=== PATIENT | female | born 1975 | race Two or more races ===

== ENCOUNTER 2025-01-11 18:28 | Emergency (ER) | payer MEDICAID, SELFPAY ==
[2025-01-11 18:48] VITALS: BP 155/89; PULSE 77; RESP 18; TEMP 36.8; O2SAT 99
--- NOTE | 2025-01-11 18:48 | XR_ITS ---
Examination: Shoulder,right, 3 views Technique: Shoulder AP internal rotation, AP external rotation, Y view shoulder, 3 views Exam date and time :January 11, 2025 1912 hours INDICATIONS: Patient fell today with injury of the shoulder, shoulder pain. FINDINGS: No shoulder fracture or dislocation AC joint separation IMPRESSION: No shoulder fracture or dislocation
[2025-01-11] MEDS: KETOROLAC INJ 30 MG/ML VIAL IM (19:23)
--- NOTE | 2025-01-11 19:26 | PD.EDFALL ---
ED Fall Injury RME/HPI General Chief Complaint: Fall Stated Complaint: FELL AND HURT R) SHOULDER @ 10:30, CAN'T MOVE IT Time Seen by Provider: 01/11/25 18:34 Arrival date/time: 01/11/25 18:28 49-year-old female presents emergency department stating she had a ground-level fall earlier this morning patient reports that she cannot move her right shoulder secondary to pain Limitations: no limitations Related Data Home Medications ?Medication ?Instructions ?Recorded ?Confirmed metformin 1,000 mg tablet 1,000 mg PO BID 06/23/20 06/23/20 Previous Rx's ?Medication ?Instructions ?Recorded prednisone 50 mg tablet 50 mg PO QDAY #5 tabs 06/23/20 acetaminophen 300 mg-codeine 30 mg 1 tab PO Q8H PRN pain #20 tabs 11/20/23 tablet metoclopramide HCl 10 mg tablet 10 mg PO Q6H PRN nausea and 11/20/23 (Reglan) vomiting #20 tabs pantoprazole 40 mg tablet,delayed 40 mg PO QDAY #14 tabs 11/20/23 release (Protonix) cyclobenzaprine 10 mg tablet 10 mg PO TID PRN muscle spasm 10 01/11/25 days #30 tab-caps ibuprofen 800 mg tablet 800 mg PO TID PRN pain #30 tabs 01/11/25 Allergies Allergy/AdvReac Type Severity Reaction Status Date / Time Penicillins Allergy Unknown Verified 01/11/25 18:31 blueberries Allergy Intermediate swelling Uncoded 01/11/25 18:31 Review of Systems Review of Systems Systems Reviewed: All systems reviewed, normal except as documented Constitutional Constitutional: Reports system reviewed and no additional complaints, except as documented, Denies fever(s) and Denies headache(s) Eyes Eyes: Reports system reviewed and no additional complaints, except as documented and Denies blurry vision ENT Ears, Nose, Mouth, and Throat: Reports system reviewed and no additional complaints, except as documented, Denies headache(s), Denies nasal congestion and Denies nasal discharge Cardiovascular Cardiovascular: Reports system reviewed and no additional complaints, except as documented, Denies chest pain and Denies dyspnea Respiratory Respiratory: Reports system reviewed and no additional complaints, except as documented, Denies chest congestion, Denies cough and Denies dyspnea Gastrointestinal Gastrointestinal: Reports system reviewed and no additional complaints, except as documented and Denies abdominal pain Musculoskeletal Musculoskeletal: Reports system reviewed and no additional complaints, except as documented, Reports arthralgias, Denies deformity and Denies joint swelling Integumentary/Breasts Skin/Breast: Reports system reviewed and no additional complaints, except as documented and Denies rash Neurologic Neurologic: Reports system reviewed and no additional complaints, except as documented, Reports as per HPI and Denies headache(s) Past Medical History Social History SMOKING STATUS: Never smoker ED Exam General Limitations: Present no limitations General appearance: Present alert and in no apparent distress Head Head exam: Present atraumatic, normocephalic and normal inspection Eye Eye exam: Present normal appearance, PERRL and EOMI; Absent conjunctival injection ENT ENT exam: Present normal exam, normal oropharynx and mucous membranes moist Neck Neck exam: Present normal inspection, full ROM and trachea midline Chest Chest inspection: Present normal inspection and symmetric chest wall rise Respiratory Respiratory exam: Present normal lung sounds bilaterally Cardiovascular Cardiovascular exam: Present regular rate, normal rhythm and normal heart sounds Abdominal Exam Abdominal exam: Present soft and normal bowel sounds Extremities Exam Extremities exam: Present tenderness and normal capillary refill; Absent joint swelling Back Exam Back exam: Present normal inspection and full ROM Neurological Exam Neurological exam: Present alert, oriented X3 and CN II-XII intact Psychiatric Psychiatric exam: Present normal affect and normal mood Skin Skin exam: Present warm, dry, intact and normal color Course Quality Measures none Orders Category Date Time Status sling [Splint / Immobilizer] STAT Care 01/11/25 19:29 Active XR shoulder RT min 2V Stat Exams 01/11/25 18:48 Completed Ketorolac Inj [Toradol Inj] Med 01/11/25 18:48 Discontinued 30 mg IM X1 ONE Vital Signs Vital signs: Vital Signs Temperature 98.3 F 01/11/25 18:48 Pulse Rate 77 01/11/25 18:48 Respiratory Rate 18 01/11/25 18:48 Blood Pressure 155/89 H 01/11/25 18:48 Pulse Oximetry (%) 99 01/11/25 18:48 Oxygen Delivery Method Room Air 01/11/25 18:48 O2 saturation 99% room air within normal limits Fall MDM Narrative MDM Narrative:: 49-year-old female presents emergency department stating she had a ground-level fall earlier this morning patient reports that she cannot move her right shoulder secondary to pain X-ray of the right shoulder obtained no acute fracture dislocation noted Based on symptomatology and the fact the patient has decreased range of motion without fracture I suspect she may have injured her rotator cuff I explained to the patient that she needs to have MRI on an outpatient basis for further evaluation patient states understanding Patient placed in sling given a note for work Patient discharged home in no distress to follow-up with primary care doctor in the next 24 to 48 hours and for any worsening symptoms to return to the ER immediately Patient data External records reviewed:: [facility] previous records Clinical information provided by:: patient Social determinants that could affect healthcare access:: none Patient has the following chronic illnesses:: See history How is presenting disease/condition affected by chronic disease/condition?: uneffected by Evaluation data The following diagnostics were reviewed and interpreted by me:: radiology exam(s) Lab and/or radiology exams considered but not ordered:: Radiology obtain Interpretation Summary: Reviewed by me Medications / Prescriptions Medications or Prescriptions considered but not ordered:: Given Medication administrations:: Medication Administration History Discontinued Medications Ketorolac Tromethamine (Ketorolac Inj 30 Mg/Ml Vial) 30 mg IM X1 ONE Stop: 01/11/25 18:49 Last Admin: 01/11/25 19:23 Dose: 30 mg Documented By: KF Given Consultations Consultation(s) initiated? (list below): No Diagnosis Fall Differential Diagnosis: other (Shoulder fracture, shoulder sprain, AC separation) Most likely diagnosis given after review of the tests above:: Shoulder pain Admission Indicated Admission indicated?: not indicated Admission Request Was there a request for admission?: No Disposition Plan Disposition Plan: Discharge Discharge Attestation Discharge Attestation: The patient and all family members were given an opportunity to ask questions and understood the discharge instructions. Discharge instructions specifically effects, indications for sooner follow up or return to the emergency department, and the expected course of current diagnosis. Patient condition: Stable Discharge Plan Plan Patient Disposition: HOME (Self Care) Discharge Disposition comment: Stable Prescriptions/Referrals Prescriptions/Med Rec: New cyclobenzaprine 10 mg tablet 10 mg PO TID PRN (Reason: muscle spasm) 10 Days Qty: 30 0RF ibuprofen 800 mg tablet 800 mg PO TID PRN (Reason: pain) Qty: 30 0RF No Action metformin 1,000 mg Tablet 1,000 mg PO BID prednisone 50 mg tablet 50 mg PO QDAY Qty: 5 0RF acetaminophen-codeine 300-30 mg tablet 1 tab PO Q8H PRN (Reason: pain) Qty: 20 0RF metoclopramide HCl [Reglan] 10 mg tablet 10 mg PO Q6H PRN (Reason: nausea and vomiting) Qty: 20 0RF pantoprazole [Protonix] 40 mg tablet,delayed release (DR/EC) 40 mg PO QDAY Qty: 14 0RF Referrals: Sabas Bullard MD [Primary Care Provider] - In 1 week Problem List Clinical Impression: Acute pain of right shoulder, Fall Patient/Caregiver Discharge Instructions Education Materials: ED Arthralgia Additional Instructions: Please follow up with your primary care doctor in the next 24-48hrs for any worsening symptoms return here immediately If your pain persist he will need an MRI for further evaluation on outpatient basis Print Language: Arabic Stand Alone Forms: Kimmy Award Info., Work/School Release, Patient Portal Info Letter PA/HOME HEALTH CARE SOCIAL WORKER Supervising Physician PA/HOME HEALTH CARE SOCIAL WORKER Supervising Physician: dr franklin
== END 2025-01-11 19:39 | disposition home or self-care (01) ==
PROVIDERS: Emergency Provider Emergency Medicine; PCP Family Medicine
DX: S49.91XA Unspecified injury of right shoulder and upper arm, initial encounter (principal); W18.30XA Fall on same level, unspecified, initial encounter
CPT/HCPCS: 73030; 96372; 99283; A4565; J1885